=== PATIENT | female | born 1990 | race American Indian/Alaskan Native ===

== ENCOUNTER 2020-04-19 12:15 | Inpatient (IN) | payer OTHER ==
[2020-04-19] MEDS ORDERED: LACTATED RINGERS 1,000 ML ONE (15:12)
[2020-04-19] MEDS ORDERED: BUTORPHANOL 2 MG/1 ML INJ ONE (15:14)
[2020-04-19] MEDS ORDERED: LIDOCAINE (2%) 20 MG/1 ML VIAL 20 ML MDV INFILTRATI ONE ×3 (15:20→18:56)
[2020-04-19] MEDS ORDERED: ePHEDrine SULFATE 50 MG/1 ML INJ IV PRN (15:20)
[2020-04-19] MEDS ORDERED: fentaNYL 100 MCG/2 ML INJ IV PRN (15:20)
[2020-04-19] MEDS ORDERED: MINERAL OIL 30 ML ORAL LIQD PO PRN (15:20)
[2020-04-19] MEDS ORDERED: TERBUTALINE 1 MG/1 ML INJ SUB-Q PRN (15:20)
[2020-04-19] MEDS ORDERED: BUTORPHANOL 2 MG/1 ML INJ IV PRN ×2 (15:20)
[2020-04-19] MEDS ORDERED: LACTATED RINGERS 1,000 ML IV SCH (15:30)
[2020-04-19] MEDS ORDERED: OXYTOCIN DRIP 30 UNITS/500 ML BAG IV SCH ×3 (16:00→21:00)
[2020-04-19] MEDS ORDERED: AMPICILLIN/NS 2 GM/100 ML 2 GM/100 ML BAG IV SCH (16:00)
--- NOTE | 2020-04-19 16:01 | History and Physical Report ---
History of Present Illness Date of examination: 04/19/20 Date of admission: 04/19/20 12:44 Chief complaint: "I'm in pain and water has been leaking from my vagina since last night" History of present illness: 29 y/o presents to [facility] ob triage @ 38.1 wks with c/o uc and "water leaking from my vagina since last night". Pt initiated her pnc at [facility] at 8 1/7 wks gestation. Her has been complicated by vit D def, + genital herpes, and pos Trich followed by a neg JOS. Pt has a family hx of DM and her GBS is neg. Pt's cervix was 5/90%/-1 and she was admitted to L&D for delivery. Past History Past Medical History: no pertinent history Past Surgical History: no surgical history [employer] History: herpes, trichomonas Family/Genetic History: diabetes Social history: single - Obstetrical History Expected Date of Delivery: 05/02/20 Actual Gestation: 38 Week(s) 1 Day(s) : 2 Para: 0 Induced : 1 Medications and Allergies Allergies Allergy/AdvReac Type Severity Reaction Status Date / Time No Known Allergies Allergy Verified 04/19/20 12:44 Active Meds: Active Medications Butorphanol Tartrate (Stadol) 1 mg IV Q2H PRN PRN Reason: Pain, Moderate(4-6) LABOR PAIN Butorphanol Tartrate (Stadol) 2 mg IV Q2H PRN PRN Reason: Pain , Severe (7-10) Ephedrine Sulfate (Ephedrine Sulfate) 10 mg IV Q2M PRN PRN Reason: Hypotension Fentanyl (Sublimaze) 100 mcg IV Q2H PRN PRN Reason: Pain,Severe (7-10) LABOR PAIN Oxytocin/Sodium Chloride (Pitocin/Ns 30 Unit/500ml) 30 units in 500 mls @ 2 mls/hr IV TITR ELIZ; Protocol Lactated Ringer's (Lactated Ringers) 1,000 mls @ 125 mls/hr IV DIRECT ELIZ Oxytocin/Sodium Chloride (Pitocin/Ns 30 Unit/500ml) 30 units in 500 mls @ 40 mls/hr IV TITR ELIZ; Protocol Mineral Oil (Mineral Oil) 30 ml PO QHS PRN PRN Reason: Constipation Terbutaline Sulfate (Brethine) 0.25 mg SUB-Q ONCE PRN PRN Reason: Hyperstimulation/Hypertonicity Review of Systems All systems: negative Eyes: deferred Ears, nose, mouth and throat: deferred Breasts: normal Genitourinary: normal appearance Rectal Exam: deferred - Vital Signs Vital signs: Vital Signs Pulse BP 95 H 141/82 04/19/20 12:43 04/19/20 12:43 Temp Pulse Resp BP Pulse Ox 98.5 F 91 H 20 134/77 98 04/19/20 12:45 04/19/20 15:42 04/19/20 12:45 04/19/20 15:42 04/19/20 13:28 - Physical Exam Breasts: Positive: normal Cardiovascular: Regular rate Lungs: Positive: Clear to auscultation Abdomen: Positive: normal appearance, soft, normal bowel sounds, other (gravid) Genitourinary (Female): Positive: normal external genitalia, normal perenium Vulva: both: normal Vagina: Positive: normal moisture Uterus: Positive: enlarged, normal contour, other (gravid) Adnexa: both: normal Anus/Rectum: Positive: normal perianal skin Extremities: Positive: normal - Obstetrical FHR: auscultation normal, category 1 Uterine Contraction Monitor Mode: External Cervical Dilatation: 5 station: -1 Uterine Contraction Frequency (min): q2-5 Uterine Contraction Pattern: Regular Uterine Tone Measurement Phase: Resting Uterine Contraction Intensity: Moderate Results All other labs normal. Assessment and Plan A: IUP@ 38.1 wks with SROM cl fluid since 9pm last night + HSV II P: Admit to L&D for delivery Start Abt r/t questionable time of SROM Anticipate - Patient Problems (1) Term Current Visit: Yes Status: Acute (2) HSV-2 infection Current Visit: Yes Status: Acute
[2020-04-19 16:27] LABS: Hematocrit 30.5 % (30.3-42.9); Hemoglobin 10.3 gm/dl (10.1-14.3); Mean Corpuscular HGB Conc 34 % (30-34); Mean Corpuscular Volume 91 fl (79-97); Platelet Count 241 K/mm3 (140-440); Red Blood Count 3.35 M/mm3 (3.65-5.03); Red Cell Distribution Width 13.4 % (13.2-15.2)
[2020-04-19] MEDS ORDERED: ONDANSETRON 4 MG/2 ML INJ IV PRN (20:21)
[2020-04-19] MEDS ORDERED: BENZOCAINE/MENTHOL 20/0.5% TOP SPRAY 56 GM TP PRN (20:21)
[2020-04-19] MEDS ORDERED: oxyCODONE /ACETAMINOPHEN 5-325MG TAB PO PRN (20:21)
[2020-04-19] MEDS ORDERED: WITCH HAZEL/ GLYCERIN PAD TP PRN (20:21)
[2020-04-19] MEDS ORDERED: METHYLERGONOVINE MALEATE 0.2 MG/ML VIAL IM PRN (20:21)
[2020-04-19] MEDS ORDERED: PROMETHAZINE 25 MG TAB PO PRN (20:21)
[2020-04-19] MEDS ORDERED: MAGNESIUM HYDROXIDE (MOM) ORAL LIQD UDC PO PRN (20:21)
[2020-04-19] MEDS ORDERED: PROMETHAZINE 25 MG RECT SUPP PR PRN (20:21)
[2020-04-19] MEDS ORDERED: diphenhydrAMINE 25 MG CAP PO PRN (20:21)
[2020-04-19] MEDS ORDERED: LANOLIN/ZINC/DIMETHICONE (LANSINOH) 7 GM TP PRN ×2 (20:21)
--- NOTE | 2020-04-19 20:21 | Procedure Note ---
OB Delivery Note - Delivery Date of Delivery: 04/19/20 Surgeon: CHRISTINA CÁRDENAS Estimated blood loss: 200cc - Vaginal Delivery presentation: vertex Delivery position: OA Route of delivery: Delivery placenta: spontaneous Delivery cord: 3 umbilical vessels Episiotomy: none Delivery laceration: none Anesthesia: none Delivery comments: Anterior shoulder delivered without difficulty. Baby bulb suctioned at the perineum and again after delivery. Delayed cord clamping and cut. Baby to the warmer. Placenta delivered spontaneously and was delivered in its entirety. Good hemostasis throughout. Mother and baby stable. - A at 1 minute: 8 at 5 minutes: 9 Gender: Female
[2020-04-20] MEDS: IBUPROFEN 600 MG TAB PO SCH ×4 (00:06→18:18)
[2020-04-20 10:12] LABS: Hematocrit 30.6 % (30.3-42.9)
--- NOTE | 2020-04-20 12:17 | Discharge Summary ---
Providers - Providers Date of Admission: 04/19/20 12:44 Date of discharge: 04/21/20 Attending physician: CHRISTINA CÁRDENAS Primary care physician: CHRISTINA CÁRDENAS Hospitalization Reason for admission: active labor Delivery: Episiotomy: none Laceration: none Other procedures: none complications: none Discharge diagnosis: IUP at term delivered, other (anemia) [place] baby: female Hospital course: See admission H & P; OB delivery summary and PP progress notes Condition at discharge: Good Disposition: DC-01 TO HOME OR SELFCARE - Discharge Diagnoses (1) Status post normal vaginal delivery Status: Acute (2) Anemia Status: Acute Qualifiers: Anemia type: iron deficiency Comment: Asymptomatic Plan - Provider Discharge Summary Activity: routine, no sex for 6 weeks, no heavy lifting 4 weeks, no strenuous exercise Diet: other (Iron rich diet) Instructions: routine Additional instructions: [] Smoking cessation referral if applicable(refer to patient education folder for contact #) [] Refer to [facility] Booklet Call your doctor immediately for: * Fever > 100.5 * Heavy vaginal bleeding ( >1 pad per hour) * Severe persistent headache * Shortness of breath * Reddened, hot, painful area to leg or breast - Follow up plan Follow up: CHRISTINA CÁRDENAS MD [Primary Care Provider] - 6 Weeks
[2020-04-21] MEDS: IBUPROFEN 600 MG TAB PO SCH ×2 (06:00→12:14)
[2020-04-21 09:10] VITALS: BP 111/79
== END 2020-04-21 22:37 | disposition home or self-care (01) | DRG 774 ==
LOC: LD 12:15 → TRG 12:15 → APU 12:15 → LD 12:44 → OBSVTOIN 12:44 → TRG 12:44 → OB 21:53
PROVIDERS: ADMIT Obstetrics & Gynecology; ATTEND Obstetrics & Gynecology
PROC: 10E0XZZ Delivery of Products of Conception, External Approach (ICD-10-PCS; principal; 2020-04-19)
DX: O98.52 Other viral diseases complicating childbirth (principal); B00.9 Herpesviral infection, unspecified; O99.02 Anemia complicating childbirth; D50.8 Other iron deficiency anemias; Z20.828 Contact with and (suspected) exposure to other viral communicable diseases; Z3A.38 38 weeks gestation of pregnancy; Z37.0 Single live birth; Z83.3 Family history of diabetes mellitus
CPT/HCPCS: 36415; 59025; 85014; 85018; 85027; 86850; 86900; 86901; G0378; J0290; J0595; J2590; J7120; U0003